=== PATIENT | male | born 1990 | race African-American/Black ===

== ENCOUNTER 2017-01-24 12:00 | Emergency (ER) | payer OTHER ==
[~2017-01-24] VITALS: Ht 177.8 cm; Wt 68.5 kg
[~2017-01-24 12:00] MED LIST: GUAI118L22 PO; GUAI118L94 PO; GUAI120011 PO; SODI44SP11 NASAL
[2017-01-24 12:02] VITALS: Ht 177.8 cm; Wt 68.5 kg
[2017-01-24] MEDS ORDERED: predniSONE 20 MG TAB PO STA (12:22)
[2017-01-24] MEDS ORDERED: IPRATROPIUM (NEB) 0.5 MG/2.5 ML AMP NEB STA (12:22)
[2017-01-24] MEDS ORDERED: ALBUTEROL 0.083% (NEB) 2.5 MG/3 ML AMP NEB STA (12:22)
--- NOTE | 2017-01-24 12:28 | ERD ---
ER Documentation Chief Complaint Date/Time DATE: 01/24/17 TIME: 12:25 Chief Complaint cough, runny nose x 3 days HPI This is a 26-year-old male who presents the emergency department today complaining of a cough for the past 4 days. States he also has a runny nose. States he is taking Cheratussin with no improvement in symptoms. States he feels short of breath. States he had fevers a couple of days ago denies any currently. ROS All systems reviewed and are negative except as per history of present illness. Medications Home Meds Active Scripts Prednisone* (Prednisone*) 20 Mg Tab, 40 MG PO DAILY for 4 Days, TAB Prov:JANE HARVEY PA-C 01/24/17 Cetirizine Hcl* (Zyrtec*) 10 Mg Capsule, 10 MG PO DAILY, #14 TAB.CHEW Prov:JANE HARVEY PA-C 01/24/17 Fluticasone Propionate (Flonase Allergy Relief) 9.9 Ml [place].susp, 2 SPRAY NASAL DAILY, #1 BOTTLE TO EACH NOSTRIL Prov:JANE HARVEY PA-C 01/24/17 Albuterol Sulfate* (Proair HFA*) 8.5 Gm Hfa.aer.ad, 2 PUFF INH Q6, #1 INHALER Prov:JANE HARVEY PA-C 01/24/17 Azithromycin* (Zithromax*) 250 Mg Tablet, 250 MG PO .ZPACK DIRECTED, #6 TAB TAKE 500 MG (2 TABS) THE FIRST DAY THEN 250 MG (1 TAB) DAYS 2-5 Prov:JANE HARVEY PA-C 01/24/17 Guaifenesin (Mucinex) 1,200 Mg Tab.er.12h, 1200 MG PO BID for COUGH for 14 Days , TAB Prov:RANDOLPH BENJAMIN MD 08/22/16 Guaifenesin/Codeine Phosphate (CHERATUSSIN AC SYRUP) 118 Ml Liquid, 10 ML PO Q6H Y for COUGH, #118 ML Prov:RANDOLPH BENJAMIN MD 08/22/16 Guaifenesin-Codeine Phosphate* (Guaifenesin* with Codeine Liq) 120 Ml Liquid, 5 ML PO QHS for COUGH, #60 ML Prov:DANAY HUNTER NP 01/05/16 Sodium Chloride (Saline Nasal [place]) 45 Ml [place], 2 SPRAYS NASAL Q2H Y for NASAL CONGESTION, #1 BOTTLE Prov:DANAY HUNTER. CELL CHANGER 01/05/16 Allergies Allergies: Coded Allergies: No Known Drug Allergies (Verified Allergy, Mild, 03/10/10) PMhx/Soc History of Surgery: No Anesthesia Reaction: No Hx Neurological Disorder: No Hx Respiratory Disorders: Yes (ASTHMA) Hx Cardiac Disorders: No Hx Psychiatric Problems: No Hx Miscellaneous Medical Probl: No Hx Alcohol Use: No Hx Substance Use: No Hx Tobacco Use: No Physical Exam Vitals Vital Signs Date Time Temp Pulse Resp B/P Pulse Ox O2 Delivery O2 Flow Rate FiO2 01/24/17 12:40 88 26 98 21 01/24/17 12:02 97.4 89 18 128/78 99 Physical Exam Const: No acute distress Head: Atraumatic Eyes: Normal Conjunctiva ENT: Ears TMs normal. Nose no drainage. Throat no erythema no exudate Neck: Full range of motion..~ No meningismus. Resp: Diffuse wheezing bilaterally in all lung eid. Cardio: Regular rate and rhythm, no murmurs Abd: Soft, non tender, non distended. Normal bowel sounds Skin: No petechiae or rashes Neur: Awake and alert Psych: Normal Mood and Affect Results 24 hrs Current Medications Medications (Trade) Dose Ordered Sig/Ricardo Route PRN Reason Start Time Stop Time Status Last Admin Dose Admin Albuterol (Proventil 0.083% (Neb)) 5 mg ONCE STAT NEB 01/24/17 12:22 01/24/17 12:25 DC 01/24/17 12:34 Ipratropium [place] (Atrovent 0.02% (Neb)) 0.5 mg ONCE STAT NEB 01/24/17 12:22 01/24/17 12:25 DC 01/24/17 12:34 Prednisone (Prednisone) 60 mg ONCE STAT PO 01/24/17 12:22 01/24/17 12:25 DC 01/24/17 12:32 DIAGNOSTIC IMAGING REPORT Patient: LASHELL ALVAREZ : 1990 Age: 26 Sex: M MR #: [id number] DOS: 01/24/17 1222 Ordering MD: JANE HARVEY PA-C Location: [facility] Room/Bed: PROCEDURE: XR Chest. CLINICAL INDICATION: chest pain, asthma TECHNIQUE: Single frontal view of the chest was obtained COMPARISON: None FINDINGS: The heart and mediastinum are within normal limits. The lungs are clear. There is no pleural effusion or pneumothorax. RPTAT: AA IMPRESSION: No acute disease. .Bharat Child MD, Date Time Electronically viewed and signed by .Bharat Child MD, MD on 01/24/2017 12: 51 .S/ CC: JANE HARVEY PA-C Procedures/MDM This 26-year-old male who presents the emergency department today for cough for the past 4 days as well as runny nose. On physical exam patient had diffuse wheezing bilaterally is complaining of shortness of breath and therefore did obtain a chest x-ray as well as give the patient a breathing treatment here in the emergency department. He is also given steroids here in the emergency department. Chest x-ray shows no acute disease. Patient did have wheezing diffusely on physical exam his symptoms at this time most consistent with acute bronchitis versus viral URI versus allergic rhinitis. Low suspicion for pneumonia, PE, abscess, pleural effusion Patient will be given a prescription for pro-air, azithromycin, Zyrtec, prednisone and flonase At this time the patient is stable for discharge and outpatient management. Patient should follow up with their PCP in the next 1-2 days. They may return to the emergency department sooner for any persistent or worsening of symptoms. Patient understood and agreed with the plan. Departure Diagnosis: Primary Impression: URI (upper respiratory infection) URI type: unspecified URI Qualified Code: J06.9 - Upper respiratory tract infection, unspecified type Condition: Fair JANE HARVEY PA-C Jan 24, 2017 12:28
--- NOTE | 2017-01-24 12:52 | RADRPT ---
PROCEDURE: XR Chest. CLINICAL INDICATION: chest pain, asthma TECHNIQUE: Single frontal view of the chest was obtained COMPARISON: None FINDINGS: The heart and mediastinum are within normal limits. The lungs are clear. There is no pleural effusion or pneumothorax. RPTAT: AA IMPRESSION: No acute disease. .Bharat Child MD, MD Date Time Electronically viewed and signed by .Bharat Child MD, on 01/24/2017 12:51 .S/
[2017-01-24] MEDS ORDERED: FLUT9.9S NASAL (13:06)
[2017-01-24] MEDS ORDERED: ALBU8.5H3 INH (13:06)
[2017-01-24] MEDS ORDERED: AZIT250T94 PO (13:06)
[2017-01-24] MEDS ORDERED: CETI10CA PO (13:06)
[2017-01-24] MEDS ORDERED: PRED20TA PO (13:09)
[2017-01-24 13:25] VITALS: BP 124/74; PULSE 84; RESP 18; TEMP 98
== END 2017-01-24 13:25 | disposition home or self-care (01) ==
LOC: FTE 12:00
DX: J06.9 Acute upper respiratory infection, unspecified (principal); J45.909 Unspecified asthma, uncomplicated
CPT/HCPCS: 71010; 94664; J7512; Z7502; Z7610

== ENCOUNTER 2019-02-15 04:11 | Emergency (ER) | payer SELFPAY ==
[~2019-02-15] VITALS: Ht 188 cm; Wt 68.9 kg
[~2019-02-15 04:11] MED LIST changes: +ALBU8.5H8 INH; +AZIT250T PO; +CETI10CA PO; +FLUT9.9S NASAL; +PRED20TA PO
[2019-02-15 04:16] VITALS: BP 106/59; PULSE 69; RESP 20; Ht 188 cm; Wt 68.9 kg
== END 2019-02-15 04:54 | disposition left against medical advice (07) ==
LOC: FTE 04:11
DX: Z53.21 Procedure and treatment not carried out due to patient leaving prior to being seen by health care provider (principal)